=== PATIENT | male | born 1975 | race Caucasian/White ===

== ENCOUNTER → 2018-07-11 | Day surgery (SDC) | payer BC ==
--- NOTE | 2018-07-10 09:33 | Diagnostic Imaging Report ---
EXAMINATION: CHEST 2 VIEWS INDICATION: Pre-admit COMPARISON: None FINDINGS: TUBES and LINES: None. LUNGS: Lungs are well inflated. Lungs are clear. There is no evidence of pneumonia or pulmonary edema. PLEURA: No pleural effusion or pneumothorax. HEART AND MEDIASTINUM: The cardiomediastinal silhouette is unremarkable. BONES AND SOFT TISSUES: No acute osseous lesion. Soft tissues are unremarkable. UPPER ABDOMEN: No free air under the diaphragm. IMPRESSION: No acute radiographic abnormality. Signed by: Dr. Ag Gaytan MD on 07/10/2018 9:29 AM
[~2018-07-11] MED LIST: BUPIVACAINE HCL 0.5% INJ 30 ML VIAL INJ ONE; CEFAZOLIN SOD 1 GM/NS 50ML 50 ML IV ONE; DEXAMETHASONE SOD PHOS INJ 4 MG/ML VIAL ONE; FENTANYL CITRATE/PF 100MCG/2 ML INJ ONE; KETOROLAC TROMETHAMINE 30 MG/ML VIAL ONE; LIDOCAINE HCL 2% LOCAL INJ 5 ML SDV VIAL INJ ONE; MIDAZOLAM HCL 2 MG/2 ML VIAL ONE; MORPHINE SULFATE INJ 10 MG/ML ONE; MUPIROCIN 2% OINT 22 GM TUBE ONE; NORCO 7.5-3251 EACH PO; ONDANSETRON HCL INJ 2MG/ML 2ML 2 MG/ML VIAL ONE; PROPOFOL IV EMULSION 10 MG/ML 20 ML VIAL ONE; SEVOFLURANE INHAL SOLN 250 ML PEN BTL ONE
--- OUTSIDE RECORDS SUMMARY | 2018-07-11 05:44 | XMS REPORT | Summary of Care ---
Author Author [facility] Organization [facility] Address Unknown Phone Unavailable Encounter HQ Edwin(FIN) [id number] Date(s): 06/19/18 - 06/19/18 [facility] [address] [place] [address]- S [phone] Discharge Disposition: Home or Self Care Attending Physician: Physician, Non Associated MD Referring Physician: Vira Hudson DC Vital Signs No data available for this section Problem List Condition Effective Dates Status Health Status Informant Left lumbar Active radiculopathy(Confir med) Lumbar Active spondylosis(Confirme d) Allergies, Adverse Reactions, Alerts Substance Reaction Severity Status lincomycin Active Medications No data available for this section Results No data available for this section Immunizations No data available for this section Procedures No data available for this section Social History Social History Type Response Alcohol Current, Type Beer. Frequency: Daily.1 Smoking Status Current every day smoker; Type: Cigarettes; Exposed at work; Lives with someone who smokes; Cigarette Smoking Last 365 Days Yes; Reg Smoking Cessation Counseling No; Tobacco use per day: 15; entered on: 12/27/17 1daily drinker 6-10 Assessment and Plan No data available for this section
--- OUTSIDE RECORDS SUMMARY | 2018-07-11 05:44 | XMS REPORT | Continuity of Care Document ---
Author Author Pamela mensahann Organization Interface Address Unknown Phone Unavailable Problems Problem Status Onset Date Classification Date Reported Comments Source M99.01 SEGMENTAL AND SOMATIC DYSFUNCTIO Active 06/14/2018 [facility] R51 Active 01/08/2018 [facility] HEADACHE Active 12/27/2017 [facility] DX: M54.16=RADICULOPATHY, LUMBAR REGION Active 02/04/2016 [facility] Left lumbar radiculopathy Active Problem 06/22/2018 [facility] Lumbar spondylosis Active Problem 06/22/2018 [facility] RADICULOPATHY, LUMBAR REGION Active [facility] Medications Medication Details Route Status Patient Instructions Ordering Provider Order Date Source Allergies, Adverse Reactions, Alerts Substance Category Reaction Severity Reaction type Status Date Reported Comments Source lincomycin Assertion Drug allergy Active [facility] Immunizations Immunization Date Given Site Status Last Updated Comments Source Results Order Name Results Value Reference Range Date Interpretation Comments Source Spine cervical wo contrast MRI Spine cervical wo contrast MRI Patient Name: SLY HENAO : 1975; Age: 43 years y/o Male MR: [id number] Study: Spine cervical wo contrast MRI 06/19/2018 8:34 [employer] Ordering Physician: Non Associated Physician, Clinical Indication: - M99.01 Segmental and somatic dysfunction of cervical region; left arm weakness and left shoulder pain Comparison: None TECHNIQUE: Multiplanar noncontrast magnetic resonance imaging of the cervical spine is performed. FINDINGS: The cervical lordosis is maintained. The vertebral bodies are normal in height. Mild loss of disc height is noted at C5-C6 and C6-C7. The marrow signal is unremarkable. The craniocervical junction is unremarkable. The cervical cord is normal in signal and caliber. The paravertebral soft tissues are unremarkable. Changes by levels: C2-C3: Unremarkable. C3-C4: Shallow central disc protrusion and minimal facet arthrosis. No significant stenosis. C4-C5: Shallow central disc protrusion. The canal is congenitally small due to short pedicles. No foraminal stenosis. C5-C6: Moderate-sized disc bulge asymmetric to the left with severe left foraminal stenosis and likely impingement of exiting C6 nerve root. There is mild right foraminal stenosis and qeit-np-baetuixo canal stenosis with indentation on the ventral thecal sac. A superimposed central disc protrusion measures 3 mm. C6-C7: Moderate-sized disc bulge with moderate foraminal stenosis and possible mass effect on exiting nerve roots. Mild to moderate spinal canal stenosis with midsagittal AP dimension measuring 8 mm. C7-T1: Unremarkable. 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 Superimposed disc bulges result in moderate spinal canal stenosis at C5-C6 and C6-C7. There is contact with the ventral surface of the cord without impingement. At C5-C6, and asymmetric disc bulge results in severe left foraminal stenosis with impingement of exiting C6 nerve root and mild right foraminal stenosis. At C6-C7, there is moderate foraminal stenosis with possible mass effect on exiting nerve roots. 06/19/2018 - - Read by: Opal Barnesap Dictated Date/time: 06/19/18 09:48 Electronically Signed by: Opal Barnes 06/19/18 09:52 FINAL REPORT [facility] Brain wo contrast MRA Brain wo contrast MRA Patient Name: SLY HENAO : 1975; Age: 42 years y/o Male MR: [id number] Study: Brain wo contrast MRA 01/19/2018 8:18 AM CDT Ordering Physician: Cheryl Ruiz MD Clinical Indication: New onset headache. Comparison: None Technique: Magnetic resonance angiography of the ambler of Arndt was performed without contrast. 3D reconstructed images were created. FINDINGS: The petrous, cavernous, ophthalmic and supraclinoid portions of the bilateral internal carotid arteries have normal caliber. Hypoplastic right A1 segment is present. The A1 and A2 segments of the bilateral anterior cerebral arteries are unremarkable. Bilateral middle cerebral arteries and its proximal branches have normal caliber. Bilateral vertebral arteries, basilar artery, and posterior cerebral arteries are unremarkable. Posterior communicating arteries are not visualized There is no aneurysm or vascular malformation. IMPRESSION: 1. Grossly normal ambler of Arndt. 2. No definite cerebral aneurysm detected. SL: [id number] 01/19/2018 - - Read by: Omar Andrews MD Dictated Date/time: 01/19/18 12:03 Electronically Signed by: Omar Andrews MD 01/19/18 12:10 FINAL REPORT [facility] Brain wo contrast CT Brain wo contrast CT Patient Name: SLY HENAO : 1975; Age: 42 years y/o Male MR: [id number] Study: Brain wo contrast CT 12/27/2017 9:24 AM CDT Ordering Physician: SALLY Romeo Clinical Indication: - persistent headache; persistent headache increased since last night. Comparison: None TECHNIQUE: CT images were obtained from the foramen magnum to the vertex without the use of intravenous contrast on a multidetector CT. Coronal and sagittal reconstructions were obtained. CT imaging performed at this location utilizes radiation dose optimization techniques which include one or more of the following: -Automated exposure control -Adjustment of the mA and/or kV according to patient size -Use of iterative reconstruction technique CT Radiation Dose DLP 981 mGy-cm FINDINGS: There is no evidence of acute intracranial hemorrhage, subacute territorial infarct, mass effect, midline shift, extra-axial fluid collection, hydrocephalus or other acute abnormalities. The kent-white interfaces are maintained. The ventricles and basilar cisterns are unremarkable. The posterior fossa is unremarkable. The cerebellar tonsils terminate above foramen magnum. The calvarium, paranasal sinuses and mastoids are unremarkable. IMPRESSION: No CT evidence of acute intracranial process. If there is further concern for intracranial pathology or acute stroke, further assessment with an MRI of the brain should be considered. DEVIN: CRYSTAL 12/27/2017 - - Read by: Opal Barnes Dictated Date/time: 12/27/17 09:59 Electronically Signed by: Opal Barnes 12/27/17 10:00 FINAL REPORT [facility] Spine lumbar wo contrast MRI Spine lumbar wo contrast MRI Study: Spine lumbar wo contrast MRI Clinical Indication: M54.16 Radiculopathy, lumbar region Comparison: None TECHNIQUE: Multiplanar, multisequence magnetic resonance imaging of the lumbar spine was performed without the administration of intravenous gadolinium contrast. FINDINGS: 5 nonrib-bearing lumbar vertebra are present. No acute compression fracture or subluxation is seen. No vertebral body marrow edema is noted. Disc desiccation from L3-L4 through L5-S1 is seen. There is mild disc height loss at L3-L4 and L4-L5 with moderate disc height loss and Modic type II degenerative endplate change at L5- S1. The conus terminates at L1. 1.5 cm left renal simple cyst is seen. Findings by level: T12-L1: Negative for significant disc bulge or protrusion. Mild facet arthrosis is noted. There is no spinal canal stenosis or neural foraminal narrowing. L1-L2: Negative for significant disc bulge or protrusion. Mild facet arthrosis is seen. There is no spinal canal stenosis or neural foraminal narrowing. L2-L3: Negative for significant disc bulge or protrusion. Mild facet arthrosis is seen. There is no spinal canal stenosis or neural foraminal narrowing. L3-L4: Small annular disc bulge is seen. Mild facet arthrosis is noted. There is mild spinal canal stenosis with mild right neural foraminal narrowing. L4-L5: 3 mm central disc protrusion with superimposed central annular fissure is seen. Mild to moderate facet arthrosis is present. There is moderate spinal canal stenosis without neural foraminal narrowing. L5-S1: Moderate to large annular disc bulge is seen. Moderate facet arthrosis and ligamentum flavum hypertrophy is noted. There is severe spinal canal stenosis with mild to moderate bilateral neural foraminal narrowing, right greater than left. The cauda equina and nerve roots are unremarkable. IMPRESSION: 1. Degenerative changes of the lumbar spine, most notable at L5-S1 with severe spinal canal stenosis and mild to moderate bilateral neural foraminal narrowing. 2. L4-L5 moderate spinal canal stenosis. 3. L3-L4 mild spinal canal stenosis with mild right neural foraminal narrowing. SL: [id number] 02/09/2016 - - Read by: Kings Mixon MD Dictated Date/time: 02/09/16 09:48 Electronically Signed by: Kings Mixon MD 02/09/16 09:52 FINAL REPORT [facility] Vital Signs Vital Sign Value Date Comments Source Encounters Location Location Details Encounter Type Encounter Number Reason For Visit Attending Provider ADM Date DC Date Status Source [facility] [id number] Cheryl Ruiz 02/09/2016 02/10/2016 [facility] Outpatient [id number] OMAR DODGE 02/15/2016 Active [facility] Outpatient [id number] Vira Hudson 06/19/2018 06/20/2018 [facility] Procedures Procedure Code Date Perfomer Comments Source
--- OUTSIDE RECORDS SUMMARY | 2018-07-11 05:44 | XMS REPORT | Summary of Care ---
Author Author [facility] Organization [facility] Address Unknown Phone Unavailable Encounter HQ Ashlientr_chris(FIN) [id number] Date(s): 02/09/16 - 02/09/16 [facility] [address] [place] [address]- [phone] Discharge Disposition: Home or Self Care Attending Physician: Cheryl Ruiz MD Referring Physician: Cheryl Ruiz MD Vital Signs No data available for this section Problem List No data available for this section Allergies, Adverse Reactions, Alerts No data available for this section Medications No data available for this section Results No data available for this section Immunizations No data available for this section Procedures No data available for this section Social History No data available for this section Assessment and Plan No data available for this section
--- OUTSIDE RECORDS SUMMARY | 2018-07-11 05:44 | XMS REPORT ---
Author [facility] Address Unknown Phone Unavailable Care Team Providers [facility] Treater Name Role Phone DILCIA VERNON Unavailable Unavailable Problems This patient has no known problems. Allergies, Adverse Reactions, Alerts This patient has no known allergies or adverse reactions. Medications This patient has no known medications. Results Test Description Test Time Test Comments Text Results Atomic Results Result Comments CHEST 2 VIEWS 2018-07-10 09:28:00 [place] [address] Patient Name: SLY HENAO MR #: [id number] : 1975 Age/Sex: 43/M Req #: [id number] Adm Physician: Ordered by: DILCIA VERNON MD Report #: [id number] Location: OR Room/Bed: Procedure: [id number] DX/CHEST 2 VIEWS Exam Date: Exam Time: REPORT STATUS: Signed EXAMINATION: CHEST 2 VIEWS INDICATION: Pre-admit COMPARISON: None FINDINGS: TUBES and LINES: None. LUNGS: Lungs are well inflated. Lungs are clear. There is no evidence of pneumonia or pulmonary edema. PLEURA: No pleural effusion or pneumothorax. HEART AND MEDIASTINUM: The cardiomediastinal silhouette is unremarkable. BONES AND SOFT TISSUES: No acute osseous lesion. Soft tissues are unremarkable. UPPER ABDOMEN: No free air under the diaphragm. IMPRESSION: No acute radiographic abnormality. Signed by: Dr. Tone Soria MD on 07/10/2018 9:29 AM Dictated By: TONE SORIA MD 8 Transcribed By: DARA on 07/10/18928 COPY TO: DILCIA VERNON MD
[2018-07-11 09:50] VITALS: BP 120/78
--- NOTE | 2018-07-11 18:42 | Operative Report ---
DATE OF PROCEDURE: 07/11/2018 SURGEON: David Tucker MD PREOPERATIVE DIAGNOSIS: Left cubital tunnel syndrome. POSTOPERATIVE DIAGNOSIS: Left cubital tunnel syndrome. PROCEDURE: Left ulnar nerve transposition. ANESTHESIA: General. HISTORY: The patient is a 43-year-old ycrip-tcqx-zdojxbid male, who presented to the office with atrophy of the ulnar innervated muscles on clinical exam and a nerve conduction study test showing a marked decrease in nerve conduction velocity across the elbow. The risks, benefits, and alternatives of treatment were discussed with the patient. He is prepared to undergo the procedure as outlined. DESCRIPTION OF PROCEDURE: The patient was marked preoperatively in the holding area. He was brought to the operating theater. After the induction of adequate general anesthesia, he was prepped and draped in a supine position. A time-out was performed. An incision was marked out from the medial epicondyle extending proximally for approximately 5 cm and distally over the flexor pronator muscle mass of 5 cm. The left upper extremity was exsanguinated and a tourniquet was inflated to a pressure of 250 mmHg. The incision was made through the skin and subcutaneous tissues. Bleeding was controlled using the bipolar cautery. The incision was deepened through the subcutaneous tissue until the medial antebrachial cutaneous branches of the elbow were identified. These branches were protected and preserved throughout their course. The dissection then continued directly over the cubital tunnel just proximal to the medical epicondyle. The ulnar nerve was identified underneath the fascia and just posterior to the intramuscular septum. Using this as a guide, all the soft tissues were then elevated off the medial epicondyle and the flexor pronator muscle mass. At this point, an incision was made in the fascia overlying the ulnar nerve and the cubital tunnel was then decompressed from proximal to distal keeping the ulnar nerve in view at all time. Once the cubital tunnel was completely unroofed, the nerve was then gently teased out of its bed using blunt dissection and a Christelle drain was then placed around it for traction purposes. The posterior attachments to the nerve were then released, so that the nerve was completely mobile from the proximal portion all the way through the cubital tunnel and into the flexor pronator muscle mass. The fascia of the flexor pronator muscle mass was then incised in the direction of its fibers and then the muscle fiber was gently teased apart, then the nerve traced into the flexor pronator muscle mass until the first and second muscular branches were seen. At this point, the intramuscular septum was skeletonized at its attachment to the medial epicondylar area. Using sharp dissection, the intramuscular septum was removed from distal to proximal for a distance of 4-5 cm, so as not to create a site of raven-compression when the nerve was transposed. The nerve was then transposed anteriorly and subcutaneously over the flexor pronator muscle mass and it was noted that a trough of fascia and muscle needs to be removed right where the nerve reenters the flexor pronator muscle mass. The nerve was temporarily placed back into the cubital tunnel and then using sharp dissection, the fascia was then incised in the markings that were made. Using the bipolar cautery, the muscle was removed in a piecemeal fashion until a satisfactory trough was created, so that no raven site of compression of the ulnar nerve was encountered. At this point, the wound was copiously irrigated with bacteriostatic saline. The nerve was then transposed using the Christelle drain anteriorly and subcutaneously, and then the elbow was placed through a range of motion. There was noted to be good gliding of the nerve and no acuity or kinking of the nerve throughout its course. At this point, a sling was created utilizing 3-0 Vicryl in an interrupted ylhidn-we-bykyc fashion to approximate the deep subcutaneous fascia to the tissue of the medial epicondyle to prevent the ulnar nerve from subluxing back into the cubital tunnel. Several interrupted sutures were used and care was taken to ensure that the sutures did not encroach on the ulnar nerve in anyway. At the completion of the creation of the sling, the elbow was placed through a full range of motion with flexion and extension. The nerve was noted to lie completely decompressed and no areas of kinking or acuity in its course were noted. The wound was then closed with 3-0 Vicryl in an interrupted buried fashion to approximate the deep dermis and 5-0 nylon in an interrupted horizontal mattress fashion to close the above tissues. Approximately 20 mL of Marcaine was instilled into the area of the wound for postop analgesia. Bactroban ointment, Xeroform gauze, and a sterile padded dressing were applied from axilla to wrist. A fiberglass splint was then added posteriorly to hold the elbow in approximately 90 degrees and held in place with loosely wrapped Ventura wraps. The tourniquet was deflated. All the fingers pinked up nicely and the patient was then returned to recovery room in satisfactory condition and discharged with a postoperative instruction sheet as well as a followup appointment. MD ZACH Anderson/ARLEEN /[id number]
== END | disposition home or self-care (01) ==
LOC: OR 05:30
PROVIDERS: ATTEND Plastic Surgery
DX: G56.22 Lesion of ulnar nerve, left upper limb (principal); F41.9 Anxiety disorder, unspecified; F17.210 Nicotine dependence, cigarettes, uncomplicated; Z01.810 Encounter for preprocedural cardiovascular examination; Z01.818 Encounter for other preprocedural examination
CPT/HCPCS: 64718; 71046; 93005; J0690; J1100; J1885; J2001; J2250; J2270; J2405; J2704